=== PATIENT | female | born 1965 | race Caucasian/White ===

== ENCOUNTER 2016-11-22 09:30 | Outpatient (CLI) | payer OTHER ==
--- NOTE | 2016-11-22 12:22 | DIAGNOSTIC IMAGING REPORT ---
PROCEDURE: MR LUMBAR SPINE W/O CONTRAST INDICATION: RLE PAIN TECHNIQUE: Noncontrast T1, T2, and STIR sagittal images. T1 and T2 axial images. COMPARISON: Lumbar spine MRI 04/10/2016 FINDINGS: Alignment and curvature: Severe leftward curvature of the lumbar spine with the apex at the L2-3 level. There is mild leftward subluxation of L2 on L1. Trace retrolisthesis of L2-3 and slightly along the right aspect of L5-S1. Vertebral bodies: Moderate posterior endplate spurring and type 2 degenerative modic changes along the L5-S1 end plates. No suspicious osseous edema. Mild posterior endplate spurring from L1-L3. Mild lateral endplate spurring as well. Disc spaces: Asymmetric disc height loss at the L2-3 level on the right, moderate diffuse disc height loss at L1-2, mild diffuse disc height loss L4-5 and moderate disc height loss L5-S1. Spinal canal: Visible distal cord is normal caliber and signal. Paraspinal soft tissues: There is a small cyst arising anteromedially from the right L4-5 facet joint slightly indenting on the thecal sac. There is a multiloculated synovial cyst extending posteriorly from the left L5-S1 facet joint. Paraspinal soft tissues are otherwise normal. L1-2: Mild diffuse circumferential disc bulge. No significant foraminal narrowing. L2-3: Mild diffuse circumferential disc bulge. Mild right foraminal narrowing. L3-4: Mild diffuse disc bulge. Mild facet and ligamentum flavum hypertrophy. No foraminal narrowing. L4-5: 10 mm synovial cyst from the right facet joint and ligamentum flavum hypertrophy distort the dorsal right aspect of the thecal sac slightly crowding nerve roots. The neural foramen are widely patent. Mild diffuse disc bulge without focal herniation. L5-S1: Severe left-sided facet arthropathy and severe left foraminal narrowing. Widely patent right neural foramen. IMPRESSION: 1. Severe left foraminal narrowing at L5-S1. 2. Slight encroachment on the thecal sac dorsal nerve roots at the L4-5 level secondary to posterior element degeneration. 3. Mild right foraminal narrowing at L2-3. 4. Scoliosis and subluxation of the spine as described.
== END 2016-11-22 23:00 ==
LOC: MRI SRH 09:30
DX: M79.661 Pain in right lower leg (principal); M48.07 Spinal stenosis, lumbosacral region